=== PATIENT | male | born 1985 | race Caucasian/White ===

== ENCOUNTER 2020-03-08 15:54 | Emergency (ER) | payer OTHER ==
[~2020-03-08] VITALS: Ht 175.3 cm; Wt 63.5 kg
--- NOTE | 2020-03-08 16:20 | Emergency Room Report ---
History of Present Illness General Chief Complaint: Syncope Source: Patient Present Illness HPI 34-year-old male with no known significant past medical history here brought in by paramedics due to syncopal episode. Patient was at a barbershop and when saw blood in the back of his head after razor cut his to the and had a syncopal episode. Patient has a very superficial laceration on forehead. Denies any he adache or dizziness. Denies any blurry vision, chest pain, shortness of breath, nausea vomiting, abdominal pain. Reports that he has a history of vasovagal syncope. Denies any drug use, tobacco smoke, alcohol intake. Patient appears to have heart rate of 49 upon arrival and blood pressure of 90/55. Reports that he runs every day. Allergies: Coded Allergies: No Known Allergies (Unverified , 03/08/20) COVID-19 Screening Contact w/high risk pt: No Experienced COVID-19 symptoms?: No COVID-19 Testing performed [employer]: No Patient History Past Medical History: see triage record Past Surgical History: none Pertinent Family History: none Immunizations: UTD Reviewed Nursing Documentation: PMH: Agreed; PSxH: Agreed Nursing Documentation-PMH Past Medical History: No Stated History Review of Systems All Other Systems: negative except mentioned in HPI Physical Exam Vital Signs Date Time Temp Pulse Resp B/P (MAP) Pulse Ox O2 Delivery O2 Flow Rate FiO2 03/08/20 15:56 98.6 49 19 90/52 (65) 100 Room Air Sp02 EP Interpretation: abnormal - Heart rate 49, blood pressure 90/55 General Appearance: alert, non-toxic, mild distress Head: normocephalic, other - Superficial laceration right upper forehead Eyes: bilateral eye normal inspection, bilateral eye PERRL ENT: hearing grossly normal, normal pharynx, no angioedema, normal voice Neck: full range of motion, supple/symm/no masses Respiratory: chest non-tender, lungs clear, normal breath sounds, no rhonchi, no respiratory distress, no retraction, no wheezing, speaking full sentences Cardiovascular #1: regular rate, rhythm, no edema, no murmur Cardiovascular #2: 2+ carotid (R), 2+ carotid (L), 2+ radial (R), 2+ radial (L), 2+ dorsalis pedis (R), 2+ dorsalis pedis (L) Gastrointestinal: normal bowel sounds, non tender, soft, non-distended, no guarding, no rebound Rectal: deferred Genitourinary: no CVA tenderness Musculoskeletal: back normal, no calf tenderness Neurologic: alert, motor strength/tone normal, oriented x3, sensory intact, responsive, speech normal Psychiatric: judgement/insight normal, memory normal, mood/affect normal, no suicidal/homicidal ideation Skin: laceration - Superficial laceration of right upper forehead Lymphatic: no adenopathy Medical Decision Making PA Attestation All diagnoses and treatment plans were reviewed and discussed with my [facility] physician Dr. Mckeon Diagnostic Impression: Primary Impression: Syncope Additional Impression: Facial laceration ER Course 34-year-old male with no known significant past medical history here brought in by paramedics due to syncopal episode. Patient was at a barbershop and when saw blood in the back of his head after razor cut his to the and had a syncopal episode. Patient has a very superficial laceration on forehead. Denies any headache or dizziness. Denies any blurry vision, chest pain, shortness of breath, nausea vomiting, abdominal pain. Reports that he has a history of vasovagal syncope. Denies any drug use, tobacco smoke, alcohol intake. Patient appears to have heart rate of 49 upon arrival and blood pressure of 90/55. Reports that he runs every day. Ddx considered but are not limited to: Dizziness due to alcohol intoxication, dizziness unspecified, dizziness due to head trauma, dizziness secondary to cardiac reasons Vital signs: are WNL, pt. is afebrile H&PE are most consistent with: Syncope, facial laceration ORDERS: CBC, CMP, UA, tox screen, EKG, troponin, chest x-ray, CK, head CT noncontrast ER intervention: NS bolus DISCHARGE: At this time pt. is stable for d/c to home. Will provide printed patient care instructions, and any necessary prescriptions. Care plan and follow up instructions have been discussed with the patient prior to discharge. Increase oral hydration, follow primary care provider, if worsening symptoms return to the emergency room. Also her primary doctor. Evaluated by manager bar for further evaluation of syncope. EKG Diagnostic Results Rate: bradycardiac Rhythm: other - Sinus bradycardia ST Segments: no acute changes Other Impression Travon Elmore PA-C ASA given to the pt in ED: No Chest X-Ray Diagnostic Results Chest X-Ray Diagnostic Results : Chest X-Ray Ordered: Yes # of Views/Limited/Complete: 1 View Indication: Other - Syncope EP Interpretation: Yes PA Xray: Interpretation reviewed, by supervising MD, and agrees with findings. Interpretation: no consolidation, no effusion, no pneumothorax Impression: No acute disease Electronically Signed by: Travon Elmore PA-C CT/MRI/US Diagnostic Results CT/MRI/US Diagnostic Results : Imaging Test Ordered: Head CT noncontrast Impression No intracranial bleed, no skull fracture Last Vital Signs Date Time Temp Pulse Resp B/P (MAP) Pulse Ox O2 Delivery O2 Flow Rate FiO2 03/08/20 15:56 98.6 49 19 90/52 (65) 100 Room Air Disposition: HOME, SELF-CARE Condition: Stable Patient Instructions: Syncope Additional Instructions: Increase oral hydration, follow primary care provider, if worsening symptoms return to the emergency room. Also her primary doctor. Evaluated by cardi ologist for further evaluation of syncope. Travon Felix Mar 08, 2020 16:20
--- NOTE | 2020-03-08 16:56 | Diagnostic Imaging Report ---
Indication: Shortness of breath Technique: One view of the chest Comparison: none Findings: Lungs and pleural spaces are clear. Heart size is normal. Impression: No acute process
--- NOTE | 2020-03-08 16:58 | Diagnostic Imaging Report ---
Indications: Trauma, head pain Technique: Spiral acquisitions obtained through the brain. Angled axial and coronal 5 x 5 mm slices were reconstructed. Total dose length product 1045 mGycm. CTDI vol(s) 53 mGy. Dose reduction achieved using automated exposure control Comparison: None. Findings: No acute intracranial hemorrhage or edema. No mass effect nor midline shift. Normal size ventricles and extra axial CSF spaces. Normal wang-white differentiation. Intact calvarium. The mastoids are clear. Impression: Negative The CT scanner at [facility] is accredited by the [employer] and the scans are performed using protocols designed to limit radiation exposure to as low as reasonably achievable to attain images of sufficient resolution adequate for diagnostic evaluation.
[2020-03-08 17:00] VITALS: BP 97/52
[2020-03-08 17:04] VITALS: BP_SYST 102; BP_SYST 104; BP_SYST 105; BP_DIAS 58; BP_DIAS 63
[2020-03-08 17:47] LABS: APPEARANCE,URINE CLEAR; BILIRUBIN, URINE NEGATIVE (NEGATIVE); COLOR,URINE PALE YELLOW; GLUCOSE, URINE (UA) NEGATIVE (NEGATIVE); KETONES,URINE 3+ (NEGATIVE); LEUKOCYTE ESTERASE ,URINE NEGATIVE (NEGATIVE); NITRITE,URINE NEGATIVE (NEGATIVE); PH,URINE 8 (4.5-8.0); PROTEIN,URINE NEGATIVE (NEGATIVE); UROBILINOGEN,URINE NORMAL MG/DL (0.0-1.0)
[2020-03-08 17:49] LABS: ANION GAP 9 mmol/L (5-15); BLOOD UREA NITROGEN 14 mg/dL (7-18); CALCIUM 9.4 MG/DL (8.5-10.1); CARBON DIOXIDE 29 MMOL/L (21-32); CHLORIDE 99 MMOL/L (98-107); CREATININE 1.3 MG/DL (0.55-1.30); SODIUM 137 MMOL/L (136-145)
[2020-03-08 17:56] LABS: CREATINE KINASE 134 U/L (26-308)
[2020-03-08 18:01] LABS: ALANINE AMINOTRANSFERASE 9 U/L (12-78); ALBUMIN 4.3 G/DL (3.4-5.0); ALBUMIN/GLOBULIN RATIO 1.8 (1.0-2.7); ALKALINE PHOSPHATASE 56 U/L (46-116); ASPARTATE AMINO TRANSFERASE 17 U/L (15-37); BILIRUBIN,TOTAL 0.6 MG/DL (0.2-1.0)
[2020-03-08 18:07] LABS: BASOPHILS % (AUTO) 1.4 % (0.0-2.0); EOSINOPHILS % (AUTO) 1.6 % (0.0-3.0); HEMATOCRIT 40.6 % (42.0-52.0); HEMOGLOBIN 13.1 G/DL (14.2-18.0); LYMPHOCYTES % (AUTO) 46.5 % (20.0-45.0); MEAN CORPUSCULAR VOLUME 88 FL (80-99); MONOCYTES % (AUTO) 9.5 % (1.0-10.0); PLATELET COUNT 135 K/UL (150-450); RED BLOOD COUNT 4.64 M/UL (4.70-6.10); RED CELL DISTRIBUTION WIDTH 12.7 % (11.6-14.8); WHITE BLOOD COUNT 6.7 K/UL (4.8-10.8)
--- NOTE | 2020-03-08 18:10 | NUR ---
ER DISCHARGE NOTE: Patient is cleared to be discharged per ERMD, pt is aox4, on room air, with stable vital signs. pt was given dc and prescription instructions, pt was able to verbalize understanding, pt id band and iv site removed without complications. pt is able to ambulate with steady gait. pt took all belongings.
[2020-03-08 18:33] VITALS: BP 98/56
[2020-03-08 18:40] VITALS: BP 98/56
--- NOTE | 2020-03-11 06:20 | Cardiology Report ---
APPROVED REPORT EKG Measurement Heart [id number] <Conclusion> Sinus bradycardia Otherwise normal ECG
== END 2020-03-08 18:45 | disposition home or self-care (01) ==
LOC: EDBD 15:54 → EMR 16:56
DX: R55 Syncope and collapse (principal); S01.81XA Laceration without foreign body of other part of head, initial encounter; W19.XXXA Unspecified fall, initial encounter; Y92.9 Unspecified place or not applicable; R00.1 Bradycardia, unspecified; R06.02 Shortness of breath; R51.9 Headache, unspecified
CPT/HCPCS: 36415; 70450; 71045; 80053; 80307; 81003; 82550; 84484; 85025; 93005; 96360; 99284; J7030